=== PATIENT | male | born 1995 | race Caucasian/White ===

== ENCOUNTER 2021-12-15 20:25 | Emergency (ER) | payer OTHER | END 2021-12-15 22:36 | disposition home or self-care (01) | LOC: ER1 20:25 | DX: S60.511A Abrasion of right hand, initial encounter (principal); S30.810A Abrasion of lower back and pelvis, initial encounter; F17.200 Nicotine dependence, unspecified, uncomplicated; V29.60XA Unspecified motorcycle rider injured in collision with unspecified motor vehicles in traffic accident, initial encounter; Y92.410 Unspecified street and highway as the place of occurrence of the external cause | CPT/HCPCS: 99283 ==